=== PATIENT | male | born 1965 | race Hispanic/Latino ===

== ENCOUNTER 2018-02-11 10:13 | Day surgery (SDC) | payer BC ==
[2018-02-11] MEDS ORDERED: Propofol 10 mg/ml Inj (20 ML) ONE (12:10)
[2018-02-11] MEDS ORDERED: Sodium Chloride 0.9% 1,000 ML IV SCH (12:45)
[2018-02-11 14:50] VITALS: BP 110/70; PULSE 64; RESP 18; TEMP 98.4; O2SAT 96
== END 2018-02-11 14:17 | disposition home or self-care (01) ==
LOC: ENDO 10:13
PROVIDERS: ATTEND Internal Medicine Gastroenterology
DX: K22.70 Barrett's esophagus without dysplasia (principal); K29.50 Unspecified chronic gastritis without bleeding
CPT/HCPCS: 43239; 88305; 88312; 88342; J2704; J7040 ×2

== ENCOUNTER 2018-06-27 00:15 | Emergency (ER) | payer BC ==
[2018-06-27 00:31] VITALS: BMI 25.3
[2018-06-27 00:35] VITALS: BP 103/63; PULSE 64; RESP 16; TEMP 97.8; O2SAT 95
[2018-06-27] MEDS ORDERED: DiphenhydrAMINE 50 mg/ml Inj IVP STA (00:40)
[2018-06-27] MEDS ORDERED: Sodium Chloride 0.9% 1,000 ML IV STA (00:40)
[2018-06-27] MEDS ORDERED: Famotidine 20mg/50ml 20 MG/50 ML BAG IVPB STA (00:40)
--- NOTE | 2018-06-27 00:41 | ED PDOC ---
Arrival/HPI - General Time Seen by Provider: 06/27/18 00:35 Historian: Patient - History of Present Illness Narrative History of Present Illness (Text): 06/27/18 00:41 This 52 yo male presents to this ED c/o allergic reaction x 4 hours. Patient stated he had multiple mosquito bites. He stated rash has been getting larger. Patient denies sob, cp, wheezing, dizziness, sore throat, cough, or abnormal gait. Time/Duration: 4-6 hours Context: Home Past Medical History - Provider Review Nursing Documentation Reviewed: Yes - Infectious Disease Hx of Infectious Diseases: None - Tetanus Immunization Tetanus Immunization: Unknown - Cardiac Hx Pacemaker: No - Neurological Hx Paralysis: No - Endocrine/Metabolic Hx Endocrine Disorders: (thyroid nodule, thyroid bx last year) - Hematological/Oncological Hx Blood Transfusions: No Hx Blood Transfusion Reaction: No - Musculoskeletal/Rheumatological Hx Musculoskeletal Disorders: Yes - Psychiatric Hx Emotional Abuse: No Hx Physical Abuse: No Hx Substance Use: No - Surgical History Other/Comment: 2 hernia - Anesthesia Hx Anesthesia Reactions: No Hx Malignant Hyperthermia: No - Suicidal Assessment Feels Threatened In Home Enviroment: No Family/Social History - Physician Review Nursing Documentation Reviewed: Yes Family/Social History: Other (noncontributory) Smoking Status: Never Smoked Hx Alcohol Use: No Hx Substance Use: No Hx Substance Use Treatment: No Allergies/Home Meds Allergies/Adverse Reactions: Allergies carbamazepine Allergy (Mild, Verified 02/03/18 12:42) RASH sesame oil Adverse Reaction (Mild, Verified 02/03/18 12:42) RASH RAGWEED Allergy (Mild, Uncoded 02/03/18 12:42) ITCHING CRAB Adverse Reaction (Mild, Uncoded 02/03/18 12:42) ITCHING Home Medications: Home Meds Medication Instructions Recorded Confirmed Aspirin 325 mg PO DAILY 12/24/15 06/27/18 Folic Acid 1 mg PO DAILY 12/24/15 06/27/18 Tramadol HCl [Tramadol HCl] 50 mg PO Q8H PRN 12/24/15 06/27/18 DULoxetine [Cymbalta] 20 mg PO DAILY 02/03/18 06/27/18 Gabapentin [Gralise] 1,800 mg PO DAILY 02/03/18 06/27/18 Losartan Potassium [Cozaar] 100 mg PO DAILY 06/27/18 06/27/18 Naproxen [Naproxen] 500 mg PO BID 06/27/18 06/27/18 Omeprazole Magnesium [Prilosec Otc] 20 mg PO DAILY 06/27/18 06/27/18 Pregabalin [Lyrica] 50 mg PO DAILY 06/27/18 06/27/18 Ranitidine HCl [Zantac] 150 mg PO DAILY 06/27/18 06/27/18 Tamsulosin [Flomax] 0.4 mg PO DAILY 06/27/18 06/27/18 Review of Systems - Review of Systems Constitutional: Normal. absent: Fatigue, Weight Change, Fevers, Night Sweats Eyes: Normal ENT: Normal Respiratory: Normal Cardiovascular: Normal Gastrointestinal: Normal Genitourinary Male: Normal Musculoskeletal: Normal Skin: Rash Neurological: Normal Endocrine: Normal Hemo/Lymphatic: Normal Psychiatric: Normal Physical Exam Vital Signs Temp Pulse Resp BP Pulse Ox 06/27/18 00:31 97.8 F 64 16 103/63 95 Temperature: Afebrile Blood Pressure: Normal Pulse: Regular Respiratory Rate: Normal Appearance: Positive for: Well-Appearing, Non-Toxic, Comfortable Pain Distress: None Mental Status: Positive for: Alert and Oriented X 3 - Systems Exam Head: Present: Atraumatic, Normocephalic Pupils: Present: PERRL Extroacular Muscles: Present: EOMI Conjunctiva: Present: Normal Mouth: Present: Moist Mucous Membranes Nose (External): Present: Atraumatic Nose (Internal): Present: Normal Inspection Neck: Present: Normal Range of Motion. No: Meningeal Signs, MIDLINE TENDERNESS , Paraspinal Tenderness, JVD, Lymphadenopathy, Trachea Midline Respiratory/Chest: Present: Clear to Auscultation, Good Air Exchange, Respiratory Distress, Accessory Muscle Use, Other. No: Wheezes, Decreased Breath Sounds, Rales, Retracting, Rhonchi, Tachypneic, Tender to Palpation Cardiovascular: Present: Regular Rate and Rhythm, Normal S1, S2. No: Murmurs Upper Extremity: Present: Normal Inspection, Normal ROM Lower Extremity: Present: Normal Inspection, Normal ROM Neurological: Present: GCS=15, CN II-XII Intact, Speech Normal, Gait Normal Skin: Present: Warm, Dry, Rashes (Urticaria like rash over right foream and b/l posterior knee) Psychiatric: Present: Alert, Oriented x 3, Normal Insight, Normal Concentration Medical Decision Making ED Course and Treatment: 06/27/18 01:56 Re-evaluation. Patient feels better. Discussed results and plan with patient who expresses understanding. All questions answered and there is agreement with the plan to discharge home with instructions. Patient stable for discharge. Return if symptoms persist or worsen. I reviewed with patient the risk of using Prednisone including AVN, glaucoma, diabetes, osteoporosis. Patient understood risk, and patient agreed to have this medication Re-evaluation Time: 01:56 Reassessment Condition: Re-examined, Improved - Medication Orders Current Medication Orders: Discontinued Medications Diphenhydramine HCl (Benadryl) 50 mg IVP STAT STA Stop: 06/27/18 00:41 Last Admin: 06/27/18 01:05 Dose: 50 mg IVP Administration Document 06/27/18 01:05 TA (Rec: 06/27/18 01:05 TA [id number]) Charges for Administration # of IVP Administrations 1 Famotidine (Pepcid 20mg/50ml Premix) 20 mg in 50 mls @ 100 mls/hr IVPB STAT STA Stop: 06/27/18 01:09 Last Admin: 06/27/18 01:05 Dose: 100 mls/hr eMAR Start Stop Document 06/27/18 01:05 TA (Rec: 06/27/18 01:05 TA [id number]) Intravenous Solution Start Date 06/27/18 Start Time 01:05 Sodium Chloride (Sodium Chloride 0.9%) 1,000 mls @ 999 mls/hr IV .Q1H1M STA Stop: 06/27/18 01:40 Last Admin: 06/27/18 01:06 Dose: 999 mls/hr eMAR Start Stop Document 06/27/18 01:06 TA (Rec: 06/27/18 01:06 TA [id number]) Intravenous Solution Start Date 06/27/18 Start Time 01:06 Methylprednisolone (Solu-Medrol) 125 mg IVP STAT STA Stop: 06/27/18 00:40 Last Admin: 06/27/18 01:05 Dose: 125 mg IVP Administration Document 06/27/18 01:05 TA (Rec: 06/27/18 01:05 TA [id number]) Charges for Administration # of IVP Administrations 1 Disposition/Present on Arrival - Present on Arrival Any Indicators Present on Arrival: No History of DVT/PE: No History of Uncontrolled Diabetes: No Urinary Catheter: No History of Decub. Ulcer: No History Surgical Site Infection Following: None - Disposition Have Diagnosis and Disposition been Completed?: Yes Diagnosis: Allergic reaction Disposition: HOME/ ROUTINE Disposition Time: : Patient Plan: Discharge Condition: GOOD Discharge Instructions (ExitCare): Allergy Skin Testing Additional Instructions: Call private doctor for follow up visit in 1-2 days. Take medication as instructed. Return to emergency if symptoms worsen. Epi Pen is to be used for anaphylaxis, or feeling fainting. Referrals: Jessica Romero MD [Primary Care Provider] - Follow up with primary Forms: WORK NOTE
== END 2018-06-27 02:15 | disposition home or self-care (01) ==
LOC: ED 00:15
DX: T78.40XA Allergy, unspecified, initial encounter (principal); X58.XXXA Exposure to other specified factors, initial encounter
CPT/HCPCS: 96374; 96375; 99281; J1200; J2930; J7030